=== PATIENT | male | born 1970 | race Caucasian/White ===

== ENCOUNTER → 2021-04-14 | Outpatient (CLI) | payer OTHER ==
[~2021-04-14] MED LIST: ANTIBIOTIC PO; FISH OIL 1,001000 M2 PO; LIPITOR10 MG PO; WELLBUTRIN 75 M75 M1 PO
== END ==
LOC: SJCVCIMAG 10:30
PROVIDERS: ATTEND Internal Medicine Cardiovascular Disease
DX: I51.7 Cardiomegaly (principal); I48.91 Unspecified atrial fibrillation; E78.00 Pure hypercholesterolemia, unspecified; F32.9 Major depressive disorder, single episode, unspecified; Z72.89 Other problems related to lifestyle; Z79.899 Other long term (current) drug therapy

== ENCOUNTER → 2021-04-29 | Outpatient (CLI) | payer OTHER | LOC: SJCVCIMAG 07:15 | PROVIDERS: ATTEND Internal Medicine Cardiovascular Disease | DX: I48.91 Unspecified atrial fibrillation (principal); E78.5 Hyperlipidemia, unspecified; R06.00 Dyspnea, unspecified; Z79.899 Other long term (current) drug therapy ==

== ENCOUNTER → 2021-05-14 | Outpatient (CLI) | payer OTHER ==
[~2021-05-14] VITALS: Ht 198.1 cm; Wt 122.7 kg
[~2021-05-14] MED LIST changes: +DILTIAZEM ER180 M2 PO; +ELIQUIS5 MG PO; +LIPITOR 20 MG T20 M1 PO; +MULTAQ 400 MG400 MG PO
[2021-05-14 09:16] LABS: BASOPHILS 0.7 % (0.0-2.0); EOSINOPHILS 1.7 % (0.0-3.0); HEMATOCRIT 44.7 % (42.0-52.0); HEMOGLOBIN 14.9 gm/dL (14.0-18.0); LYMPHOCYTES 29.8 % (24.0-44.0); MCH 31.7 pg (26.0-34.0); MCHC 33.3 g/dL (28.0-37.0); MONOCYTES 11.4 % (1.0-8.0); PLATELET COUNT 260 thou/uL (150-400); POLYS 56.4 % (36.0-66.0); RDW 13.8 % (10.5-14.5); WBC 3.5 thou/uL (4.0-11.0)
[2021-05-14 09:25] VITALS: BP 120/88
[2021-05-14 09:33] LABS: PROTIME 10.9 Seconds (10.5-12.1)
[2021-05-14 09:38] LABS: CALCIUM 8.8 mg/dL (8.5-10.1); POTASSIUM 4.6 mmol/L (3.5-5.1)
[2021-05-14 09:45] LABS: ALBUMIN 3.5 g/dL (3.4-5.0); TOTAL BILIRUBIN 0.5 mg/dL (0.2-1.0)
--- NOTE | 2021-05-17 16:28 | P ---
[facility] [place] [address] PROCEDURE REPORT Name: WOLFGANG AVILA Room #: REG [facility].#: [id number] Admission: 05/14/21 Attend Phys: Curtis Bermudez MD Discharge: Date of : 70 Report #: [id number] THIS REPORT FOR: cc: Sarah White, Sarah Borjas, Curtis Bassett MD ~ DATE OF SERVICE: 05/14/2021 PROCEDURE: Cardioversion. PREOPERATIVE DIAGNOSIS: Atrial fibrillation. POSTOPERATIVE DIAGNOSIS: Atrial fibrillation. DESCRIPTION OF PROCEDURE: The patient underwent informed consent. He was then prepped in a standard fashion with patches placed in the AP position. Once sedated by the Anesthesiology Service, he underwent a 200 joule synchronized cardioversion with oriental orthodox of sinus rhythm. There were no procedure related complications. CONCLUSION: Successful DC cardioversion with oriental orthodox of sinus rhythm. <ELECTRONICALLY SIGNED> By: Curtis Bermudez MD 05/17/21 1628 [id number] Curtis Bermudez MD /nt
== END | disposition home or self-care (01) ==
LOC: CATH 07:15
PROVIDERS: ATTEND Internal Medicine Cardiovascular Disease
DX: I48.91 Unspecified atrial fibrillation (principal); E78.00 Pure hypercholesterolemia, unspecified; F32.9 Major depressive disorder, single episode, unspecified; E66.9 Obesity, unspecified; Z98.890 Other specified postprocedural states; Z79.899 Other long term (current) drug therapy; Z20.822 Contact with and (suspected) exposure to COVID-19; Z98.52 Vasectomy status; Z79.01 Long term (current) use of anticoagulants
CPT/HCPCS: 62110; 62900

== ENCOUNTER → 2021-07-15 | Outpatient (CLI) | payer OTHER | LOC: CAT 09:59 | PROVIDERS: ATTEND Internal Medicine Cardiovascular Disease | DX: I48.91 Unspecified atrial fibrillation (principal); R91.8 Other nonspecific abnormal finding of lung field ==

== ENCOUNTER → 2021-07-19 | Outpatient (CLI) | payer BC, OTHER ==
[~2021-07-19] VITALS: Ht 182.9 cm; Wt 126.1 kg
[2021-07-19 07:14] VITALS: BP 123/83
[2021-07-19 07:20] LABS: ABSOLUTE NEUTROPHILS 3.2 thou/uL (1.4-8.2); BASOPHILS 0.7 % (0.0-2.0); EOSINOPHILS 1.9 % (0.0-3.0); HEMOGLOBIN 15.7 gm/dL (14.0-18.0); LYMPHOCYTES 27.8 % (24.0-44.0); MCH 31.4 pg (26.0-34.0); MCHC 34.1 g/dL (28.0-37.0); MCV 92.2 fL (80.0-100.0); MONOCYTES 9.7 % (1.0-8.0); PLATELET COUNT 302 thou/uL (150-400); POLYS 59.9 % (36.0-66.0); RBC 4.99 mil/uL (4.50-6.00); RDW 12.9 % (10.5-14.5); WBC 5.3 thou/uL (4.0-11.0)
[2021-07-19 07:27] LABS: CALCIUM 9.2 mg/dL (8.5-10.1); CREATININE 1.1 mg/dL (0.7-1.3); POTASSIUM 4.8 mmol/L (3.5-5.1)
[2021-07-19 07:33] LABS: ALBUMIN 3.6 g/dL (3.4-5.0); TOTAL BILIRUBIN 0.6 mg/dL (0.2-1.0); TOTAL PROTEIN 7.2 g/dL (6.4-8.2)
[2021-07-19 07:44] LABS: APTT 26.3 Seconds (24.5-32.8); INR 0.97; PROTIME 10.6 Seconds (10.5-12.1)
--- NOTE | 2021-07-19 13:32 | NUR ---
PT BROUGHT TO RM 2 FROM PACU. AWAKE AND ALERT. DRESSING RT GROIN C/D/I, SOFT TO PALPATE. BROUGHT FROM WAITING ROOM TO PT BEDSIDE.
--- NOTE | 2021-07-19 17:05 | NUR ---
PT HAD BRIEF EPISODE OF FEELING LIGHTHEADED AND SKIN CLAMMY AFTER WALKING BACK TO ROOM AFTER IV DC'D. PT GIVEN FLUIDS AND JAMES CRACKERS AND PEANUT BUTTER. WAITED 30 MINUTES AND THEN DC'D PER WC. PT STATES HE'S FINE. VSS. SKIN WARM AND DRY. ANXIOUS AND UPSET. REASSURANCE GIVEN
--- NOTE | 2021-07-26 08:23 | P ---
[facility] [place] [address] PROCEDURE REPORT Name: WOLFGANG AVILA Room #: REG [facility]#: [id number] Admission: 07/19/21 Attend Phys: Curtis Bermudez MD Discharge: Date of : 70 Report #: [id number] THIS REPORT FOR: cc: Sarah White, Sarah Borjas, Curtis Bassett MD ~ DATE OF SERVICE: 07/19/2021 ATRIAL FIBRILLATION ABLATION PREOPERATIVE DIAGNOSIS: Atrial fibrillation. POSTOPERATIVE DIAGNOSIS: Atrial fibrillation. PROCEDURES PERFORMED: 1. Atrial fibrillation ablation, CPT code 37234. 2. 3D mapping, CPT code 73470. 3. Intracardiac echo, CPT code 65622. 4. Program stimulation pacing after IV drug infusion, CPT code 22185. 5. Focal ablation -- CPT code 92043. HISTORY: The patient is a 50-year-old male with history of AFib, here for ablation. DESCRIPTION OF PROCEDURE: The patient was placed under general anesthesia. Prior to this, he underwent informed consent. He was brought to the EP laboratory in a fasting and sedated state, prepped and draped in a standard fashion. I obtained access to the right femoral vein x 3, placing an 8, 9 and 7-Kinyarwanda short sheath using the modified Seldinger technique. Under fluoroscopy, I placed a decapolar catheter into the coronary sinus and ICE catheter in the right atrium. At baseline, the patient was in atrial fibrillation. The patient was systemically heparinized and using a SL1 sheath and a Gordon needle. The patient underwent successful transseptal. I then exchanged for the SL1 sheath for the cryosheath and the Lasso catheter was placed in the left atrium. A 3D geometry of the left atrium was created. I then started isolating the pulmonary veins. The left superior pulmonary vein underwent a 70 second freeze, came off early due to poor temps underwent a 3-minute freeze followed by a 4-minute freeze and during the third freeze, the vein isolated at 66 milliseconds. The left inferior pulmonary vein underwent a 3-minute followed by 4-minute freeze which did not result in isolation. An additional 4-minute freeze resulted in isolation at 54 seconds. Right superior pulmonary vein underwent a 4-minute freeze which resulted in isolation. The right inferior pulmonary vein underwent 4-minute freeze followed by 3-minute freezes. This resulted in right inferior pulmonary vein isolation. Given the extensive complex fractionated atrial electrograms along the posterior [facility] [address] [place] [address] PROCEDURE REPORT Name: WOLFGANG AVILA Room #: REG [facility] RebollarJewellMicheleJewell#: [id number] Admission: 07/19/21 Attend Phys: Curtis Bermudez MD Discharge: Date of : 70 Report #: [id number] wall, I decided to perform posterior wall isolation. The patient underwent a total of 5 posterior wall freezes each of 3 minutes' duration. Esophageal temperatures were found to be stable throughout this portion of the procedure. The patient then underwent 200 joule synchronized cardioversion and a repeat voltage map was created showing that all 4 pulmonary veins were isolated and the posterior wall was also isolated. A basic EP study was performed. AV block was noted at 280 milliseconds. Atrial ERP was noted at 250 milliseconds at a [address] cycle length. Isoproterenol infusion was initiated and EP study was continued. AV block was noted at 270 milliseconds. Atrial ERP was noted at 200 milliseconds at a [address] cycle length. There were no inducible arrhythmias, post-ablation. As such, the procedure was concluded. There was no evidence of pericardial effusion. The patient received systemic protamine and once ACT was within acceptable range, catheters and sheaths were pulled and hemostasis obtained. CONCLUSION: 1. Successful atrial fibrillation ablation with isolation of the pulmonary veins. 2. Successful posterior wall ablation with isolation. 3. Comprehensive EP study with no inducible arrhythmias on or off isoproterenol. <ELECTRONICALLY SIGNED> By: Curtis Bermudez MD 07/26/21 0823 [id number] Curtis Bermudez MD /nt
== END | disposition home or self-care (01) ==
LOC: CATH 06:30
PROVIDERS: ATTEND Internal Medicine Cardiovascular Disease
DX: I48.91 Unspecified atrial fibrillation (principal); E78.00 Pure hypercholesterolemia, unspecified; F32.9 Major depressive disorder, single episode, unspecified; E66.9 Obesity, unspecified; Z98.890 Other specified postprocedural states; Z79.899 Other long term (current) drug therapy; Z79.01 Long term (current) use of anticoagulants; Z98.52 Vasectomy status; Z20.822 Contact with and (suspected) exposure to COVID-19
CPT/HCPCS: 62110; 62900; 65020; 65040; 70005